=== PATIENT | female | born 1955 | race Two or more races ===

== ENCOUNTER 2016-10-29 13:50 | Emergency (ER) | payer MEDICARE, MEDICAID ==
[~2016-10-29] VITALS: Ht 157.5 cm; Wt 136.1 kg
[~2016-10-29 13:50] MED LIST: HYDR5CAP; SULF-35 PO; [UNRECOGNIZED DRUG - CODE]
[2016-10-29 14:31] LABS: Urine RBC None Seen /hpf (0 - 4)
[2016-10-29 14:32] LABS: Basophils # (auto) 0.1 uL; Basophils % (auto) 0.7 % (0.0-2.0); Eosinophils # (auto) 0.2 uL; Eosinophils % (auto) 2.5 % (0.0-7.0); Hematocrit 41.3 % (36.0-46.0); Lymphocytes # (auto) 2.2 uL; Lymphocytes % (auto) 30.5 % (10.0-50.0); Mean Corpuscular Hemoglobin 30.2 pg (28.0-32.0); Mean Corpuscular Volume 88.9 fL (80.0-100.0); Mean Platelet Volume 8.4 fL (7.4-10.4); Monocytes # (auto) 0.7 uL; Monocytes % (auto) 9.3 % (0.0-12.0); Neutrophils # (auto) 4.1 uL; Platelet Count (auto) 265 10^3/uL (140-450); Red Cell Distribution Width 15.3 % (11.6-16.0); White Blood Cell 7.2 10^3/uL (4.4-10.8)
[2016-10-29 14:42] LABS: Urine Bilirubin Negative (Negative); Urine Blood Negative /uL (Negative); Urine Color Yellow (Yellow); Urine Glucose Normal (Normal); Urine Ketone Negative (Negative); Urine Nitrite Negative (Negative); Urine Squamous Epithelial Cell FEW /hpf (<5); Urine Urobilinogen Normal (Negative)
[2016-10-29 14:49] LABS: Albumin 3.8 g/dL (3.4-5.0); Anion Gap 9 (5-15); Aspartate Aminotransferase 68 U/L (15-37); BUN/Creatinine Ratio 14.5; Blood Urea Nitrogen 10 mg/dL (7-18); Calcium 8.9 mg/dL (8.5-10.1); Carbon Dioxide 23 mmol/L (21-32); Chloride 108 mmol/L (98-107); GFR African American 112 mL/min; GFR Non-African American 93 mL/min; Glucose 113 mg/dL (74-106); Potassium 4.1 mmol/L (3.5-5.1); Sodium 140 mmol/L (136-145)
[2016-10-29 14:53] LABS: Alkaline Phosphatase 139 U/L (45-117); Bilirubin, Total 0.6 mg/dL (0.2-1.0); Total Protein 8.1 g/dL (6.4-8.2)
[2016-10-29] MEDS ORDERED: ONDANSETRON HCL 4 MG/2 ML VIAL IV ONE (20:00)
[2016-10-29] MEDS ORDERED: HYDROmorphone HCL 2 MG/ML VL IV ONE (20:00)
[2016-10-29] MEDS ORDERED: SODIUM CHLORIDE 0.9% 250 ML IV ONE (20:30)
[2016-10-29] MEDS ORDERED: LEVOFLOXACIN 750MG 150 ML IV ONE (22:00)
[2016-10-29 22:58] VITALS: BP 122/76
== END 2016-10-30 00:27 | disposition home or self-care (01) ==
LOC: ER 13:51
DX: S33.5XXA Sprain of ligaments of lumbar spine, initial encounter (principal); J18.9 Pneumonia, unspecified organism; K57.90 Diverticulosis of intestine, part unspecified, without perforation or abscess without bleeding; M79.1 Myalgia; I10 Essential (primary) hypertension; E11.9 Type 2 diabetes mellitus without complications; X58.XXXA Exposure to other specified factors, initial encounter; Y93.89 Activity, other specified; Y99.8 Other external cause status; Y92.89 Other specified places as the place of occurrence of the external cause
CPT/HCPCS: 36415; 74176; 80053; 81001; 84484; 85025; 96361; 96365; 96366; 96375; 99285; J1170; J1956; J2405; J7050

== ENCOUNTER 2018-09-16 14:49 | Emergency (ER) | payer OTHER, MEDICAID ==
[~2018-09-16] VITALS: Ht 157.5 cm; Wt 136.1 kg
[2018-09-16 15:00] VITALS: BP 125/65
[2018-09-16] MEDS ORDERED: HYDROcodone-ACET 10/325MG TAB PO ONE (16:15)
== END 2018-09-16 16:45 | disposition home or self-care (01) ==
LOC: EDUNIT# 14:49 → EDBD 14:49 → ER 14:56
DX: M79.604 Pain in right leg (principal); E11.9 Type 2 diabetes mellitus without complications; E78.5 Hyperlipidemia, unspecified; I10 Essential (primary) hypertension; I25.10 Atherosclerotic heart disease of native coronary artery without angina pectoris; Z90.710 Acquired absence of both cervix and uterus
CPT/HCPCS: 93971

== ENCOUNTER 2020-04-25 18:22 | Inpatient (IN) | payer OTHER, MEDICAID ==
[~2020-04-25] VITALS: Ht 165.1 cm; Wt 147.2 kg
[2020-04-25 19:15] VITALS: BP 118/62
[2020-04-25] MEDS ORDERED: ACETAMINOPHEN 500 MG TAB PO ONE (19:15)
[2020-04-25 19:19] LABS: Basophils # (auto) 0 10 ^3/uL (0-0.2); Basophils % (auto) 0.3 % (0.0-2.0); Eosinophils # (auto) 0 10 ^3/uL (0-0.8); Eosinophils % (auto) 0.1 % (0.0-7.0); Hematocrit 37.7 % (36.0-46.0); Hemoglobin 12.8 g/dL (12.2-16.2); Lymphocytes # (auto) 1.5 10 ^3/uL (0.4-5.4); Lymphocytes % (auto) 22.6 % (10.0-50.0); Mean Corpuscular Hemoglobin 30.1 pg (28.0-32.0); Mean Corpuscular Volume 88.5 fL (80.0-100.0); Monocytes # (auto) 0.4 10 ^3/uL (0-1.3); Monocytes % (auto) 5.6 % (0.0-12.0); Neutrophils # (auto) 4.6 10 ^3/uL (1.6-8.6); Neutrophils % (auto) 71.4 % (37.0-80.0); Nucleated Red Blood Cells % 0.1 %; Platelet Count (auto) 262 10^3/uL (140-450); Red Blood Cells 4.26 10^6/uL (4.0-5.20); Red Cell Distribution Width 14.3 % (11.8-14.3); White Blood Cell 6.5 10^3/uL (4.4-10.8)
[2020-04-25 19:35] LABS: INR 1.03 (0.9-1.15)
[2020-04-25 19:36] LABS: Albumin 2.9 g/dL (3.4-5.0); Anion Gap 5 (5-15); Blood Urea Nitrogen 7 mg/dL (7-18); Calcium 9.1 mg/dL (8.5-10.1); Carbon Dioxide 27 mmol/L (21-32); Chloride 104 mmol/L (98-107); Glucose 151 mg/dL (74-106); Magnesium 2.3 mg/dL (1.6-2.6); Potassium 3.6 mmol/L (3.5-5.1); Sodium 136 mmol/L (136-145)
[2020-04-25 19:44] LABS: Lactic Acid w/Reflex 2.2 mmol/L (0.4-2.0)
[2020-04-25 19:46] LABS: Alanine Aminotransferase 56 U/L (13-56); Alkaline Phosphatase 95 U/L (45-117); Aspartate Aminotransferase 56 U/L (15-37); BUN/Creatinine Ratio 9.2; Bilirubin, Total 0.4 mg/dL (0.2-1.0); GFR African American 99 mL/min; GFR Non-African American 82 mL/min; Total Protein 7.9 g/dL (6.4-8.2)
[2020-04-25 20:00] LABS: Urine Bacteria NONE SEEN /hpf (None Seen); Urine Blood Negative /uL (Negative); Urine Mucus FEW (None Seen); Urine Specific Gravity 1.009 (1.001-1.035); Urine WBC 3 /hpf (0 - 5)
[2020-04-25 20:28] VITALS: BP 124/61
[2020-04-25] MEDS ORDERED: LORazepam 2MG/ML-1ML VIAL IV ONE (21:15)
[2020-04-25 21:40] VITALS: BP 110/61
[2020-04-26] VITALS (49 sets, daily range): BP systolic 84–215; BP diastolic 40–146
[2020-04-26] MEDS ORDERED: IOPAMIDOL 76 % (ISOVUE-370) 100ML BTL IV ONE (02:48)
[2020-04-26] MEDS ORDERED: MORPHINE SULF INJ 2 MG/ML SYRINGE 1ML IV PRN (04:45)
[2020-04-26] MEDS ORDERED: NITROGLYCERIN 0.4 MG SL TAB SL PRN (04:45)
[2020-04-26] MEDS ORDERED: ALBUTEROL SULF HFA 90MCG INH 200DOSE IN SCH (06:00)
[2020-04-26] MEDS ORDERED: ACETAMINOPHEN 325 MG TAB PO ONE (06:00)
[2020-04-26] MEDS ORDERED: PROMETHAZINE HCL 25 MG/ML 1ML IV ONE (06:00)
[2020-04-26] MEDS ORDERED: HYDROcodone-ACET 5/325MG TAB PO ONE (06:00)
[2020-04-26] MEDS: FUROSEMIDE 40 MG/4 ML VIAL IV SCH ×3 (09:15→20:00)
[2020-04-26] MEDS ORDERED: LORazepam 2MG/ML-1ML VIAL IV PRN (09:30)
[2020-04-26] MEDS: DexAMETHasone SOD PHOS 10MG/1ML VIAL INJ IV SCH (10:00)
[2020-04-26] MEDS: ZINC SULFATE 220mg CAP or TAB PO SCH (10:00)
[2020-04-26] MEDS: ASCORBIC ACID 500 MG TAB PO SCH (10:00)
[2020-04-26] MEDS: CHOLECALCIFEROL (VITD3) 2,000 UNIT CAP/TAB PO SCH (10:00)
[2020-04-26] MEDS ORDERED: levoFLOXacin 500MG 100 ML IV ONE (10:00)
[2020-04-26] MEDS: ENOXAPARIN SOD 40 MG/0.4 ML SYRINGE SC SCH (10:00)
[2020-04-26] MEDS ORDERED: SUCCINYLCHOLINE CHLORIDE 20 MG/ML 10ML VIAL IV ONE (12:58)
[2020-04-26] MEDS ORDERED: ROCURONIUM 10MG/ML 10ML VIAL IV ONE ×2 (12:58→15:30)
[2020-04-26] MEDS ORDERED: ETOMIDATE (2MG/ML) 20ML VIAL IV ONE (12:58)
[2020-04-26] MEDS ORDERED: fentaNYL Drip 2500mCg/250mlNS 250 ML IV ONE (12:59)
[2020-04-26] MEDS ORDERED: PROPOFOL 100 ML IV ONE (12:59)
[2020-04-26] MEDS ORDERED: MIDAZOLAM DRIP 50 mg/50mL 50 ML IV ONE (12:59)
[2020-04-26] MEDS ORDERED: NOREPINEPHRINE 8 MG/250ML KIT 250 ML IV SCH (13:00)
[2020-04-26] MEDS: PROPOFOL 100 ML IV SCH ×3 (13:30→22:54)
[2020-04-26] MEDS ORDERED: NOREPINEPHRINE 8 MG/250ML KIT 250 ML IV ONE (14:34)
[2020-04-26] MEDS: NOREPINEPHRINE 8 MG/250ML KIT 250 ML IV SCH (14:50)
[2020-04-26] MEDS: ATRACURIUM BESYLATE 1,000 MG in D5W 5% 150 ML IV SCH (15:15)
[2020-04-26] MEDS ORDERED: MIDAZOLAM DRIP 50 mg/50mL 50 ML IV SCH (15:30)
[2020-04-26] MEDS: VASOPRESSIN 50 UNITS in D5W 5% 247.5 ML IV SCH (15:30)
[2020-04-26] MEDS ORDERED: fentaNYL Drip 2500mCg/250mlNS 250 ML IV SCH (15:30)
[2020-04-26] MEDS: PHENYLEPHRINE IV 250 ML IV SCH ×2 (15:30→23:50)
[2020-04-26] MEDS: EPINEPHrine HCL 250 ML IV SCH (15:30)
[2020-04-26] MEDS: MIDAZOLAM DRIP 50 mg/50mL 50 ML IV SCH ×2 (17:30→20:37)
[2020-04-26] MEDS: fentaNYL Drip 2500mCg/250mlNS 250 ML IV SCH (17:30)
[2020-04-27] VITALS (84 sets, daily range): BP systolic 79–175; BP diastolic 49–91
[2020-04-27] MEDS: MIDAZOLAM DRIP 50 mg/50mL 50 ML IV SCH ×3 (00:20→12:54)
[2020-04-27] MEDS: fentaNYL Drip 2500mCg/250mlNS 250 ML IV SCH (00:56)
[2020-04-27] MEDS: PROPOFOL 100 ML IV SCH ×4 (03:59→19:21)
[2020-04-27] MEDS: NOREPINEPHRINE 8 MG/250ML KIT 250 ML IV SCH (05:02)
[2020-04-27 05:21] LABS: Basophils # (auto) 0 10 ^3/uL (0-0.2); Basophils % (auto) 0.4 % (0.0-2.0); Eosinophils # (auto) 0 10 ^3/uL (0-0.8); Hematocrit 35.1 % (36.0-46.0); Hemoglobin 12.2 g/dL (12.2-16.2); Lymphocytes % (auto) 10.6 % (10.0-50.0); Mean Corpuscular Hemoglobin 30.5 pg (28.0-32.0); Mean Corpuscular Hgb Conc. 34.9 g/dL (32.0-36.0); Mean Corpuscular Volume 87.5 fL (80.0-100.0); Monocytes # (auto) 0.5 10 ^3/uL (0-1.3); Monocytes % (auto) 5.3 % (0.0-12.0); Neutrophils # (auto) 8.2 10 ^3/uL (1.6-8.6); Neutrophils % (auto) 83.7 % (37.0-80.0); Nucleated Red Blood Cells % 0.1 %; Platelet Count (auto) 288 10^3/uL (140-450); Red Blood Cells 4.01 10^6/uL (4.0-5.20); Red Cell Distribution Width 14.2 % (11.8-14.3); White Blood Cell 9.8 10^3/uL (4.4-10.8)
[2020-04-27 05:45] LABS: Potassium 3.1 mmol/L (3.5-5.1)
[2020-04-27 05:53] LABS: BUN/Creatinine Ratio 19.8; Calcium 8.2 mg/dL (8.5-10.1); Magnesium 1.9 mg/dL (1.6-2.6)
[2020-04-27] MEDS ORDERED: DexAMETHasone SOD PHOS 10MG/1ML VIAL INJ ONE (07:42)
[2020-04-27] MEDS: PHENYLEPHRINE IV 250 ML IV SCH ×2 (08:10→09:21)
[2020-04-27] MEDS: ZINC SULFATE 220mg CAP or TAB PO SCH (09:19)
[2020-04-27] MEDS: DexAMETHasone SOD PHOS 10MG/1ML VIAL INJ IV SCH (09:19)
[2020-04-27] MEDS: ENOXAPARIN SOD 40 MG/0.4 ML SYRINGE SC SCH (09:20)
[2020-04-27] MEDS: ASCORBIC ACID 500 MG TAB PO SCH (09:20)
[2020-04-27] MEDS: CHOLECALCIFEROL (VITD3) 2,000 UNIT CAP/TAB PO SCH (09:20)
[2020-04-27] MEDS: VASOPRESSIN 50 UNITS in D5W 5% 247.5 ML IV SCH (09:21)
[2020-04-27] MEDS: EPINEPHrine HCL 250 ML IV SCH (09:21)
[2020-04-27] MEDS ORDERED: DEXTROSE (50%) 50ML SYRG IV PRN (14:45)
[2020-04-27] MEDS: POTASSIUM CHL 20MEQ/100ML 100 ML IV SCH ×3 (14:55→18:45)
[2020-04-27] MEDS: ATRACURIUM BESYLATE 1,000 MG in D5W 5% 150 ML IV SCH (15:15)
[2020-04-27] MEDS: InsuLIN REG 1unit/0.01ml Soln (100units/ml) SC SCH (17:49)
[2020-04-27] MEDS: FUROSEMIDE 40 MG/4 ML VIAL IV SCH (17:49)
[2020-04-27] MEDS: ACCU-CHEK COMFORT CURVE STRIP VI SCH (17:49)
[2020-04-27] MEDS ORDERED: REMDESIVIR PER PHARMACY 0 ML IV SCH (18:15)
[2020-04-27] MEDS ORDERED: REMDESIVIR 200 MG in NS 210ml LOADING DOSE ADULT IV ONE (20:00)
[2020-04-28] VITALS (83 sets, daily range): BP systolic 83–202; BP diastolic 36–139
[2020-04-28] MEDS: PHENYLEPHRINE IV 250 ML IV SCH ×4 (00:50→22:45)
[2020-04-28] MEDS: ACCU-CHEK COMFORT CURVE STRIP VI SCH ×4 (01:38→17:52)
[2020-04-28] MEDS: InsuLIN REG 1unit/0.01ml Soln (100units/ml) SC SCH ×4 (01:39→17:45)
[2020-04-28] MEDS: FUROSEMIDE 40 MG/4 ML VIAL IV SCH ×2 (06:15→17:44)
[2020-04-28 06:18] LABS: Potassium 3.4 mmol/L (3.5-5.1)
[2020-04-28 06:31] LABS: Albumin 2.5 g/dL (3.4-5.0); BUN/Creatinine Ratio 23.4; Bilirubin, Total 0.6 mg/dL (0.2-1.0); Calcium 8.7 mg/dL (8.5-10.1); Total Protein 7.8 g/dL (6.4-8.2)
[2020-04-28] MEDS: PROPOFOL 100 ML IV SCH ×3 (07:55→20:28)
[2020-04-28] MEDS: ZINC SULFATE 220mg CAP or TAB PO SCH (09:39)
[2020-04-28] MEDS: DexAMETHasone SOD PHOS 10MG/1ML VIAL INJ IV SCH (09:40)
[2020-04-28] MEDS: CHOLECALCIFEROL (VITD3) 2,000 UNIT CAP/TAB PO SCH (09:40)
[2020-04-28] MEDS: ASCORBIC ACID 500 MG TAB PO SCH (09:40)
[2020-04-28] MEDS: ENOXAPARIN SOD 40 MG/0.4 ML SYRINGE SC SCH ×2 (09:41→21:32)
[2020-04-28] MEDS ORDERED: ENOXAPARIN SOD 40 MG/0.4 ML SYRINGE SC SCH (10:00)
[2020-04-28] MEDS: fentaNYL Drip 2500mCg/250mlNS 250 ML IV SCH (10:33)
[2020-04-28] MEDS: MIDAZOLAM DRIP 50 mg/50mL 50 ML IV SCH ×3 (10:33→18:17)
[2020-04-28] MEDS: FAMOTIDINE (10MG/ML) 2ML VL IV SCH ×2 (10:35→21:31)
[2020-04-28] MEDS: POTASSIUM EFFERVESENT TAB 25 MEQ PO SCH ×2 (10:36→21:31)
[2020-04-28] MEDS: PIPERACILLIN-TAZOB 3.375GM 100 ML IV SCH ×2 (13:46→21:31)
[2020-04-28] MEDS ORDERED: Glucerna 1.2 Cal 1Liter BOTTLE GT SCH (14:45)
[2020-04-28] MEDS: NOREPINEPHRINE 8 MG/250ML KIT 250 ML IV SCH (15:03)
[2020-04-28] MEDS: REMDESIVIR 100mg 100 MG in SODIUM CHL 0.9% 230 ML IV SCH (15:06)
[2020-04-28] MEDS: ATRACURIUM BESYLATE 1,000 MG in D5W 5% 150 ML IV SCH (15:10)
[2020-04-28] MEDS: EPINEPHrine HCL 250 ML IV SCH (15:30)
[2020-04-28] MEDS: VASOPRESSIN 50 UNITS in D5W 5% 247.5 ML IV SCH (15:30)
[2020-04-28] MEDS: METOCLOPRAMIDE HCL 5MG/ml INJ 2ml VIAL IV SCH (21:31)
[2020-04-29] VITALS (104 sets, daily range): BP systolic 88–228; BP diastolic 46–124
[2020-04-29] MEDS: ACCU-CHEK COMFORT CURVE STRIP VI SCH ×4 (00:09→17:12)
[2020-04-29] MEDS: InsuLIN REG 1unit/0.01ml Soln (100units/ml) SC SCH ×4 (00:14→17:12)
[2020-04-29 02:49] LABS: Albumin 2.5 g/dL (3.4-5.0); BUN/Creatinine Ratio 23.9; Calcium 8.4 mg/dL (8.5-10.1); Potassium 4.2 mmol/L (3.5-5.1)
[2020-04-29 02:51] LABS: Bilirubin, Total 0.6 mg/dL (0.2-1.0)
[2020-04-29] MEDS: FUROSEMIDE 40 MG/4 ML VIAL IV SCH (03:53)
[2020-04-29] MEDS: METOCLOPRAMIDE HCL 5MG/ml INJ 2ml VIAL IV SCH ×3 (06:28→20:56)
[2020-04-29] MEDS: PIPERACILLIN-TAZOB 3.375GM 100 ML IV SCH ×3 (06:28→20:56)
[2020-04-29] MEDS: PHENYLEPHRINE IV 250 ML IV SCH ×5 (08:41→16:12)
[2020-04-29] MEDS: FAMOTIDINE (10MG/ML) 2ML VL IV SCH ×2 (10:01→20:56)
[2020-04-29] MEDS: ZINC SULFATE 220mg CAP or TAB PO SCH (10:02)
[2020-04-29] MEDS: CHOLECALCIFEROL (VITD3) 2,000 UNIT CAP/TAB PO SCH (10:02)
[2020-04-29] MEDS: ASCORBIC ACID 500 MG TAB PO SCH (10:02)
[2020-04-29] MEDS: POTASSIUM EFFERVESENT TAB 25 MEQ PO SCH ×2 (10:02→20:56)
[2020-04-29] MEDS: ENOXAPARIN SOD 40 MG/0.4 ML SYRINGE SC SCH ×2 (10:03→20:56)
[2020-04-29] MEDS: DexAMETHasone SOD PHOS 10MG/1ML VIAL INJ IV SCH (10:03)
[2020-04-29] MEDS: FUROSEMIDE INJECTION 100 MG in SODIUM CHL 0.9% 100 ML IV SCH (12:47)
[2020-04-29] MEDS: REMDESIVIR 100mg 100 MG in SODIUM CHL 0.9% 230 ML IV SCH (15:07)
[2020-04-29] MEDS: ATRACURIUM BESYLATE 1,000 MG in D5W 5% 150 ML IV SCH (15:08)
[2020-04-29] MEDS: VASOPRESSIN 50 UNITS in D5W 5% 247.5 ML IV SCH (15:08)
[2020-04-29] MEDS: EPINEPHrine HCL 250 ML IV SCH (15:08)
[2020-04-29] MEDS: NOREPINEPHRINE 8 MG/250ML KIT 250 ML IV SCH (15:09)
[2020-04-29] MEDS: PHENYLEPHRINE INJ 40 MG in SODIUM CHL 0.9% 246 ML IV SCH (19:45)
[2020-04-29] MEDS: ACETAMINOPHEN 650 mg PER 20.3 mL UD GT PRN (20:57)
[2020-04-29] MEDS: fentaNYL Drip 2500mCg/250mlNS 250 ML IV SCH (22:38)
[2020-04-30] VITALS (106 sets, daily range): BP systolic 47–203; BP diastolic 25–95
[2020-04-30] MEDS: FUROSEMIDE INJECTION 100 MG in SODIUM CHL 0.9% 100 ML IV SCH (04:22)
[2020-04-30] MEDS: ACETAMINOPHEN 650 mg PER 20.3 mL UD GT PRN (04:42)
[2020-04-30] MEDS: PIPERACILLIN-TAZOB 3.375GM 100 ML IV SCH ×3 (05:53→22:03)
[2020-04-30] MEDS: ACCU-CHEK COMFORT CURVE STRIP VI SCH ×4 (05:53→18:00)
[2020-04-30] MEDS: METOCLOPRAMIDE HCL 5MG/ml INJ 2ml VIAL IV SCH ×3 (05:53→22:03)
[2020-04-30] MEDS: InsuLIN REG 1unit/0.01ml Soln (100units/ml) SC SCH ×5 (06:00→18:00)
[2020-04-30 06:25] LABS: Albumin 2.3 g/dL (3.4-5.0); Bilirubin, Total 0.9 mg/dL (0.2-1.0); Calcium 8.3 mg/dL (8.5-10.1); Total Protein 7.6 g/dL (6.4-8.2)
[2020-04-30] MEDS: PHENYLEPHRINE INJ 40 MG in SODIUM CHL 0.9% 246 ML IV SCH (09:15)
[2020-04-30] MEDS: ASCORBIC ACID 500 MG TAB PO SCH (10:15)
[2020-04-30] MEDS: CHOLECALCIFEROL (VITD3) 2,000 UNIT CAP/TAB PO SCH (10:15)
[2020-04-30] MEDS: DexAMETHasone SOD PHOS 10MG/1ML VIAL INJ IV SCH (10:15)
[2020-04-30] MEDS: ENOXAPARIN SOD 40 MG/0.4 ML SYRINGE SC SCH ×2 (10:15→22:03)
[2020-04-30] MEDS: FAMOTIDINE (10MG/ML) 2ML VL IV SCH ×2 (10:15→22:03)
[2020-04-30] MEDS: MIDAZOLAM DRIP 50 mg/50mL 50 ML IV SCH (10:15)
[2020-04-30] MEDS: POTASSIUM EFFERVESENT TAB 25 MEQ PO SCH ×2 (10:15→22:03)
[2020-04-30] MEDS: ZINC SULFATE 220mg CAP or TAB PO SCH (10:15)
[2020-04-30] MEDS: fentaNYL Drip 2500mCg/250mlNS 250 ML IV SCH ×2 (10:15→22:04)
[2020-04-30] MEDS: ATRACURIUM BESYLATE 1,000 MG in D5W 5% 150 ML IV SCH (15:15)
[2020-04-30] MEDS: VASOPRESSIN 50 UNITS in D5W 5% 247.5 ML IV SCH (15:30)
[2020-04-30] MEDS: EPINEPHrine HCL 250 ML IV SCH (15:30)
[2020-04-30] MEDS: REMDESIVIR 100mg 100 MG in SODIUM CHL 0.9% 230 ML IV SCH (15:30)
[2020-04-30] MEDS: PROPOFOL 100 ML IV SCH ×2 (15:30→23:00)
[2020-04-30] MEDS: NOREPINEPHRINE 8 MG/250ML KIT 250 ML IV SCH (17:00)
[2020-05-01] VITALS (84 sets, daily range): BP systolic 70–279; BP diastolic 44–111
[2020-05-01] MEDS: InsuLIN REG 1unit/0.01ml Soln (100units/ml) SC SCH ×5 (00:26→23:43)
[2020-05-01] MEDS: ACCU-CHEK COMFORT CURVE STRIP VI SCH ×5 (00:26→23:41)
[2020-05-01] MEDS: ACETAMINOPHEN 650 mg PER 20.3 mL UD GT PRN ×2 (00:29→23:44)
[2020-05-01] MEDS: PHENYLEPHRINE INJ 40 MG in SODIUM CHL 0.9% 246 ML IV SCH ×4 (04:25→22:00)
[2020-05-01] MEDS: FUROSEMIDE INJECTION 100 MG in SODIUM CHL 0.9% 100 ML IV SCH (04:25)
[2020-05-01 05:07] LABS: Hematocrit 40.8 % (36.0-46.0); Hemoglobin 13.8 g/dL (12.2-16.2); Mean Corpuscular Hemoglobin 30.2 pg (28.0-32.0); Mean Corpuscular Hgb Conc. 33.7 g/dL (32.0-36.0); Mean Corpuscular Volume 89.7 fL (80.0-100.0); Platelet Count (auto) 255 10^3/uL (140-450); Red Blood Cells 4.55 10^6/uL (4.0-5.20); Red Cell Distribution Width 14.9 % (11.8-14.3); White Blood Cell 17.8 10^3/uL (4.4-10.8)
[2020-05-01 05:27] LABS: Albumin 2.1 g/dL (3.4-5.0); Anion Gap 11 (5-15); Blood Urea Nitrogen 26 mg/dL (7-18); Calcium 8.9 mg/dL (8.5-10.1); Carbon Dioxide 26 mmol/L (21-32); Chloride 107 mmol/L (98-107); Glucose 237 mg/dL (74-106); Potassium 3.9 mmol/L (3.5-5.1); Sodium 144 mmol/L (136-145)
[2020-05-01 05:35] LABS: Alanine Aminotransferase 37 U/L (13-56); Alkaline Phosphatase 143 U/L (45-117); Aspartate Aminotransferase 72 U/L (15-37); BUN/Creatinine Ratio 28.3; Bilirubin, Total 1.1 mg/dL (0.2-1.0); GFR African American 79 mL/min; GFR Non-African American 66 mL/min; Total Protein 7.8 g/dL (6.4-8.2)
[2020-05-01 05:39] LABS: Basophils % (manual) 0 (0.0-2.0); Blast Cells 0; Eosinophils % (manual) 0 (0-7); Monocytes % (manual) 0 (0-12); Myelocytes % 0; Promyelocytes % 0; Reactive Lymphocytes 0
[2020-05-01 05:54] LABS: CRP High Sensitivity > 19.0 mg/dL (< 0.3)
[2020-05-01] MEDS: METOCLOPRAMIDE HCL 5MG/ml INJ 2ml VIAL IV SCH ×3 (05:59→21:34)
[2020-05-01] MEDS: PIPERACILLIN-TAZOB 3.375GM 100 ML IV SCH ×3 (05:59→21:34)
[2020-05-01 06:57] LABS: Band Neutrophils % (manual) 39; Lymphocytes % (manual) 5 (10.0-50.0); Metamyelocytes % 1
[2020-05-01] MEDS: PROPOFOL 100 ML IV SCH ×4 (07:45→22:00)
[2020-05-01] MEDS: MIDAZOLAM DRIP 50 mg/50mL 50 ML IV SCH ×4 (07:45→22:00)
[2020-05-01] MEDS: fentaNYL Drip 2500mCg/250mlNS 250 ML IV SCH ×2 (10:15→22:00)
[2020-05-01] MEDS: ASCORBIC ACID 500 MG TAB PO SCH (10:15)
[2020-05-01] MEDS: DexAMETHasone SOD PHOS 10MG/1ML VIAL INJ IV SCH (10:15)
[2020-05-01] MEDS: POTASSIUM EFFERVESENT TAB 25 MEQ PO SCH ×2 (10:15→21:34)
[2020-05-01] MEDS: FAMOTIDINE (10MG/ML) 2ML VL IV SCH ×2 (10:15→21:34)
[2020-05-01] MEDS: ZINC SULFATE 220mg CAP or TAB PO SCH (10:15)
[2020-05-01] MEDS: CHOLECALCIFEROL (VITD3) 2,000 UNIT CAP/TAB PO SCH (10:15)
[2020-05-01] MEDS: ENOXAPARIN SOD 40 MG/0.4 ML SYRINGE SC SCH ×2 (10:15→21:35)
[2020-05-01] MEDS: NOREPINEPHRINE 8 MG/250ML KIT 250 ML IV SCH (12:15)
[2020-05-01] MEDS: ATRACURIUM BESYLATE 1,000 MG in D5W 5% 150 ML IV SCH ×2 (15:15→17:30)
[2020-05-01] MEDS: REMDESIVIR 100mg 100 MG in SODIUM CHL 0.9% 230 ML IV SCH (15:15)
[2020-05-01] MEDS: EPINEPHrine HCL 250 ML IV SCH (15:30)
[2020-05-01] MEDS: VASOPRESSIN 50 UNITS in D5W 5% 247.5 ML IV SCH (15:30)
[2020-05-02] VITALS (103 sets, daily range): BP systolic 50–133; BP diastolic 21–62
[2020-05-02] MEDS: PHENYLEPHRINE INJ 40 MG in SODIUM CHL 0.9% 246 ML IV SCH ×2 (01:00→12:30)
[2020-05-02] MEDS: PROPOFOL 100 ML IV SCH ×8 (01:00→21:00)
[2020-05-02] MEDS: MIDAZOLAM DRIP 50 mg/50mL 50 ML IV SCH ×3 (03:24→15:15)
[2020-05-02] MEDS: NOREPINEPHRINE 8 MG/250ML KIT 250 ML IV SCH ×3 (05:00→17:00)
[2020-05-02] MEDS: PIPERACILLIN-TAZOB 3.375GM 100 ML IV SCH ×3 (05:57→22:00)
[2020-05-02] MEDS: METOCLOPRAMIDE HCL 5MG/ml INJ 2ml VIAL IV SCH ×3 (05:57→22:00)
[2020-05-02] MEDS: ACCU-CHEK COMFORT CURVE STRIP VI SCH ×3 (05:57→18:00)
[2020-05-02] MEDS: InsuLIN REG 1unit/0.01ml Soln (100units/ml) SC SCH ×3 (05:58→18:00)
[2020-05-02 06:06] LABS: Hematocrit 36.7 % (36.0-46.0); Mean Corpuscular Hemoglobin 29.6 pg (28.0-32.0); Mean Corpuscular Hgb Conc. 32.6 g/dL (32.0-36.0); Mean Corpuscular Volume 90.7 fL (80.0-100.0); Platelet Count (auto) 271 10^3/uL (140-450); Red Blood Cells 4.05 10^6/uL (4.0-5.20); Red Cell Distribution Width 15.3 % (11.8-14.3); White Blood Cell 14.3 10^3/uL (4.4-10.8)
[2020-05-02 06:23] LABS: Basophils % (manual) 0 (0.0-2.0); Blast Cells 0; Eosinophils % (manual) 0 (0-7); Metamyelocytes % 0; Myelocytes % 0; Promyelocytes % 0; Reactive Lymphocytes 0
[2020-05-02 06:27] LABS: Albumin 1.7 g/dL (3.4-5.0); Calcium 8.8 mg/dL (8.5-10.1)
[2020-05-02 06:30] LABS: BUN/Creatinine Ratio 20.3
[2020-05-02] MEDS: fentaNYL Drip 2500mCg/250mlNS 250 ML IV SCH ×2 (07:45→21:00)
[2020-05-02 07:51] LABS: Potassium 5.9 mmol/L (3.5-5.1)
[2020-05-02] MEDS ORDERED: SODIUM ZIRCONIUM CYCL 10 GM PAK GT ONE (09:45)
[2020-05-02] MEDS: POTASSIUM EFFERVESENT TAB 25 MEQ PO SCH (10:00)
[2020-05-02] MEDS: ENOXAPARIN SOD 40 MG/0.4 ML SYRINGE SC SCH ×2 (10:15→22:00)
[2020-05-02] MEDS: CHOLECALCIFEROL (VITD3) 2,000 UNIT CAP/TAB PO SCH (10:15)
[2020-05-02] MEDS: DexAMETHasone SOD PHOS 10MG/1ML VIAL INJ IV SCH (10:15)
[2020-05-02] MEDS: ZINC SULFATE 220mg CAP or TAB PO SCH (10:15)
[2020-05-02] MEDS: FAMOTIDINE (10MG/ML) 2ML VL IV SCH (10:15)
[2020-05-02] MEDS: ASCORBIC ACID 500 MG TAB PO SCH (10:15)
[2020-05-02] MEDS: FUROSEMIDE INJECTION 100 MG in SODIUM CHL 0.9% 100 ML IV SCH ×4 (10:40→22:53)
[2020-05-02 11:56] LABS: Band Neutrophils % (manual) 14; Lymphocytes % (manual) 4 (10.0-50.0); Monocytes % (manual) 1 (0-12)
[2020-05-02] MEDS: VASOPRESSIN 50 UNITS in D5W 5% 247.5 ML IV SCH (12:30)
[2020-05-02] MEDS: ATRACURIUM BESYLATE 1,000 MG in D5W 5% 150 ML IV SCH (12:30)
[2020-05-02] MEDS: EPINEPHrine HCL 250 ML IV SCH (15:30)
[2020-05-02] MEDS: SODIUM BICARBONATE 50ML VIAL 75 ML in SOD CHL 0.45% 1,000 ML IV SCH (16:45)
[2020-05-02] MEDS ORDERED: SODIUM ZIRCONIUM CYCL 10 GM PAK PO ONE (17:00)
[2020-05-02 18:10] LABS: Urine Bacteria FEW /hpf (None Seen); Urine Blood 2+ /uL (Negative); Urine Specific Gravity 1.025 (1.001-1.035); Urine WBC 46 /hpf (0 - 5); Urine WBC Clumps PRESENT /hpf (None Seen)
[2020-05-02 18:31] LABS: Creatinine, Urine 121 mg/dL (30.0-125.0); Sodium Urine 18 mmol/L (40-220)
[2020-05-02] MEDS ORDERED: PHENYLEPHRINE IV 500 ML IV ONE (23:25)
[2020-05-02] MEDS ORDERED: PHENYLEPHRINE HCL 10 MG/ML VL ONE (23:30)
[2020-05-03] VITALS (81 sets, daily range): BP systolic 58–141; BP diastolic 16–45
[2020-05-03] MEDS: PHENYLEPHRINE INJ 40 MG in SODIUM CHL 0.9% 246 ML IV SCH ×4 (00:26→19:56)
[2020-05-03] MEDS: InsuLIN REG 1unit/0.01ml Soln (100units/ml) SC SCH ×4 (00:30→18:05)
[2020-05-03] MEDS: SODIUM BICARBONATE 50ML VIAL 75 ML in SOD CHL 0.45% 1,000 ML IV SCH (02:45)
[2020-05-03] MEDS: METOCLOPRAMIDE HCL 5MG/ml INJ 2ml VIAL IV SCH ×2 (06:00→13:48)
[2020-05-03] MEDS: PIPERACILLIN-TAZOB 3.375GM 100 ML IV SCH ×2 (06:00→13:48)
[2020-05-03] MEDS: ACCU-CHEK COMFORT CURVE STRIP VI SCH ×4 (06:00→18:04)
[2020-05-03 07:01] LABS: Albumin 1.4 g/dL (3.4-5.0); BUN/Creatinine Ratio 16.3; Bilirubin, Total 1.2 mg/dL (0.2-1.0); Calcium 8.1 mg/dL (8.5-10.1); Total Protein 6.7 g/dL (6.4-8.2)
[2020-05-03 07:56] LABS: Potassium 6.6 mmol/L (3.5-5.1)
[2020-05-03] MEDS: PROPOFOL 100 ML IV SCH ×2 (08:28)
[2020-05-03] MEDS: CHOLECALCIFEROL (VITD3) 2,000 UNIT CAP/TAB PO SCH (09:16)
[2020-05-03] MEDS: ENOXAPARIN SOD 40 MG/0.4 ML SYRINGE SC SCH (09:16)
[2020-05-03] MEDS: ZINC SULFATE 220mg CAP or TAB PO SCH (09:16)
[2020-05-03] MEDS: ASCORBIC ACID 500 MG TAB PO SCH (09:16)
[2020-05-03] MEDS ORDERED: InsuLIN REG 1unit/0.01ml Soln (100units/ml) IV ONE (09:30)
[2020-05-03] MEDS ORDERED: BUMETANIDE 2.5mg/10ml (0.25 mg/ml) INJ IV ONE (09:30)
[2020-05-03] MEDS ORDERED: DEXTROSE (50%) 50ML SYRG IV ONE (09:30)
[2020-05-03] MEDS ORDERED: SODIUM ZIRCONIUM CYCL 10 GM PAK PO ONE (09:30)
[2020-05-03] MEDS ORDERED: SODIUM BICARBONATE 50ML VIAL 150 ML in D5W 5% 1,000 ML IV SCH (09:30)
[2020-05-03] MEDS ORDERED: FAMOTIDINE (10MG/ML) 2ML VL IV SCH (10:00)
[2020-05-03] MEDS: DexAMETHasone SOD PHOS 10MG/1ML VIAL INJ IV SCH (10:00)
[2020-05-03] MEDS: ATRACURIUM BESYLATE 1,000 MG in D5W 5% 150 ML IV SCH (13:49)
[2020-05-03] MEDS: VASOPRESSIN 50 UNITS in D5W 5% 247.5 ML IV SCH ×2 (13:50→19:55)
[2020-05-03] MEDS: EPINEPHrine HCL 250 ML IV SCH (13:50)
[2020-05-03] MEDS ORDERED: SODIUM BICARBONATE 8.4% INJ 50ML SYRINGE ONE (18:48)
[2020-05-03] MEDS: FUROSEMIDE INJECTION 100 MG in SODIUM CHL 0.9% 100 ML IV SCH (19:55)
[2020-05-03] MEDS: NOREPINEPHRINE 8 MG/250ML KIT 250 ML IV SCH (19:57)
== END 2020-05-03 23:40 | DRG 870 ==
LOC: EDBD 18:22 → ER 18:26 → ICU CENTRL 18:27 → DOU IN ICU 04-26 08:35
PROVIDERS: ADMIT Internal Medicine; ATTEND Internal Medicine
PROC: 5A1955Z Respiratory Ventilation, Greater than 96 Consecutive Hours (ICD-10-PCS; 2020-04-26)
PROC: 02HV33Z Insertion of Infusion Device into Superior Vena Cava, Percutaneous Approach (ICD-10-PCS; 2020-04-26)
PROC: 03HY32Z Insertion of Monitoring Device into Upper Artery, Percutaneous Approach (ICD-10-PCS; 2020-04-26)
PROC: 0BH17EZ Insertion of Endotracheal Airway into Trachea, Via Natural or Artificial Opening (ICD-10-PCS; 2020-04-26)
PROC: B548ZZA Ultrasonography of Superior Vena Cava, Guidance (ICD-10-PCS; 2020-04-26)
PROC: XW033E5 Introduction of Remdesivir Anti-infective into Peripheral Vein, Percutaneous Approach, New Technology Group 5 (ICD-10-PCS; principal; 2020-04-27)
PROC: XW13325 Transfusion of Convalescent Plasma (Nonautologous) into Peripheral Vein, Percutaneous Approach, New Technology Group 5 (ICD-10-PCS; 2020-04-27)
DX: A41.89 Other specified sepsis (principal); U07.1 COVID-19; J12.82 Pneumonia due to coronavirus disease 2019; N17.0 Acute kidney failure with tubular necrosis; J80 Acute respiratory distress syndrome; Z68.43 Body mass index [BMI] 50.0-59.9, adult; E87.4 Mixed disorder of acid-base balance; M19.90 Unspecified osteoarthritis, unspecified site; E66.01 Morbid (severe) obesity due to excess calories; J45.909 Unspecified asthma, uncomplicated; E11.9 Type 2 diabetes mellitus without complications; E78.00 Pure hypercholesterolemia, unspecified; E87.5 Hyperkalemia; E88.09 Other disorders of plasma-protein metabolism, not elsewhere classified; Z66 Do not resuscitate; I46.9 Cardiac arrest, cause unspecified; E78.5 Hyperlipidemia, unspecified; I25.10 Atherosclerotic heart disease of native coronary artery without angina pectoris; Z82.49 Family history of ischemic heart disease and other diseases of the circulatory system; Z83.3 Family history of diabetes mellitus; Z90.710 Acquired absence of both cervix and uterus
CPT/HCPCS: 36415; 36600; 71045; 71275; 80048; 80053; 81001; 82570; 82728; 82805; 82962; 83605; 83615; 83735; 83880; 84300; 84484; 85007; 85025; 85027; 85379; 85610; 86141; 86850; 86900; 86901; 87040; 87070; 87081; 87205; 87426; 93005; 94002; 94003; 94660; 96374; 96375; A4618; G0378; J0330; J1100; J1815; J1956; J2250; J2543; J2704; J3480; J3490; J7060